=== PATIENT | female | born 1985 | race Caucasian/White ===

== ENCOUNTER 2023-10-07 15:14 | Inpatient (IN) ==
[2023-10-08] MEDS ORDERED: LIDOCAINE 1% LOCAL 20 ML VIAL INFIL PRN (16:30)
[2023-10-08] MEDS ORDERED: miSOPROStoL 50 MCG TAB PO ONE (16:30)
[2023-10-08] MEDS ORDERED: OXYTOCIN 30 UNITS/NSS 30 UNITS/500 ML BAG IV PRN (16:30)
[2023-10-08 17:07] LABS: Hematocrit (blood only) 28.9 % (37.0-47.0); Hemoglobin 9.1 g/dl (12.0-16.0); Mean Corpuscular Hemoglobin 25.1 pg (25.0-34.0); Mean Corpuscular Hgb Conc 31.5 g/dL (32.0-36.0); Mean Corpuscular Volume 79.8 fL (80.0-100.0); Mean Platelet Volume 10.9 fL (9.4-12.4); Nucleated RBC # (auto) 0.03 K/uL (0.00-0.12); Nucleated RBC % (auto) 0.4 %; Platelet Count 136 K/uL (130-400); RDW Coefficient of Variation 14.4 % (11.5-14.5); RDW Standard Deviation 42.4 fL (36.4-46.3); Red Blood Count 3.62 M/uL (4.20-5.40); White Blood Count 8.52 K/ul (4.8-10.8)
[2023-10-09] MEDS ORDERED: BUPIVACAINE 0.25% PF 30 ML VIAL ONE (01:40)
[2023-10-09] MEDS ORDERED: fentaNYL citrate PF 100 MCG/2 ML VIAL ONE (01:40)
[2023-10-09] MEDS ORDERED: fentANYL 2 MCG/ML BUPIVacaine 0.125%-NSS 100ML BAG ONE (01:40)
[2023-10-09] MEDS ORDERED: SODIUM CHLORIDE 0.9% PF INJ 10 ML VIAL ONE (01:40)
[2023-10-09] MEDS ORDERED: ePHEDrine sulfate 50 MG/ML AMP ONE (01:40)
[2023-10-09] MEDS ORDERED: LIDOCAINE 2%/EPINEPHRINE 1:200,000 20 ML PF ONE (01:40)
[2023-10-09] MEDS: LACTATED RINGER'S 1,000 ML IV PRN ×2 (02:15→06:20)
--- NOTE | 2023-10-09 02:50 | Anesthesiology Consultation ---
Date of Service October 09, 2023 Assessment & Plan (1) Encounter for pre-operative examination: Chart Review Chart Review: Acceptable Risk for Labor Epidural History Height/Weight Height: 5 ft 6 in Weight: 92.533 kg Allergies Allergy/AdvReac Type Severity Reaction Status Date / Time No Known Drug Allergies Allergy Unknown Verified 10/08/23 16:18 Medications Home Medications Medication Instructions Recorded Confirmed Last Taken [id number] 1 mg 1 tab PO DAILY 10/08/23 10/08/23 10/08/23 tablet Past Medical History Medical History (Updated 10/09/23 @ 02:50 by George Flores MD) Anemia History of miscarriage 2019 Past Surgical History Surgical History H/O dilation and curettage Miscarriage 2019 Social History Smoking Status: Never smoker Hx Alcohol Use: No alcohol intake frequency: holidays/special occasions only Hx Substance Use: No substance use type: does not use Physical Exam Vital Signs Last Vital Signs Temp 36.9 C 10/08/23 23:51 Pulse 76 10/09/23 02:46 Resp 18 10/08/23 23:51 BP 118/66 10/08/23 23:28 Pulse Ox 98 10/09/23 02:46 Testing Laboratory Results 10/08/23 16:40
[2023-10-09] MEDS ORDERED: NALOXONE HCL 1 MG in SODIUM CHLORIDE 0.9% 1,000 ML IV PRN (03:14)
[2023-10-09] MEDS ORDERED: SODIUM CHLORIDE 0.9% PF INJ 10 ML VIAL EPI STA (03:14)
[2023-10-09] MEDS ORDERED: fentaNYL citrate PF 100 MCG/2 ML VIAL EPI PRN (03:14)
[2023-10-09] MEDS ORDERED: NALOXONE HCL 0.4 MG/1 ML VIAL/CARP IV PRN (03:14)
[2023-10-09] MEDS ORDERED: ePHEDrine sulfate 50 MG/ML AMP IV PRN (03:14)
[2023-10-09] MEDS ORDERED: fentaNYL citrate PF 100 MCG/2 ML VIAL EPI STA (03:14)
[2023-10-09] MEDS ORDERED: SODIUM CHLORIDE 0.9% PF INJ 10 ML VIAL EPI PRN (03:14)
[2023-10-09] MEDS ORDERED: LIDOCAINE 2% MPF LOCAL 5 ML VIAL EPI PRN (03:14)
[2023-10-09] MEDS ORDERED: ROPIVACAINE 0.5% PF 5 MG/ML 20 ML VIAL EPI PRN (03:14)
[2023-10-09] MEDS ORDERED: fentANYL 2 MCG/ML BUPIVacaine 0.125%-NSS 100ML BAG EPI PRN (03:14)
[2023-10-09] MEDS ORDERED: BUPIVACAINE 0.25% PF 30 ML VIAL EPI STA (03:14)
[2023-10-09] MEDS ORDERED: ONDANSETRON INJ 2 MG/ML 2 ML VIAL IV PRN (03:14)
[2023-10-09] MEDS ORDERED: BUPIVACAINE 0.25% PF 30 ML VIAL EPI PRN (03:14)
[2023-10-09] MEDS ORDERED: LIDOCAINE 2%/EPINEPHRINE 1:200,000 20 ML PF EPI STA (03:14)
[2023-10-09] MEDS ORDERED: OXYTOCIN 30 UNITS/NSS 30 UNITS/500 ML BAG IV PRN ×2 (03:43→14:57)
[2023-10-09] MEDS ORDERED: METHYLERGONOVINE MALEATE 0.2 MG/ML AMP ONE (14:40)
[2023-10-09] MEDS ORDERED: miSOPROStoL 200 MCG TAB ONE (14:41)
[2023-10-09] MEDS ORDERED: HYDROCORTISONE ACETATE 25 MG SUPP PR PRN (14:57)
[2023-10-09] MEDS ORDERED: METHYLERGONOVINE MALEATE 0.2 MG/ML AMP IM ONE (14:57)
[2023-10-09] MEDS ORDERED: ACETAMINOPHEN W/CODEINE #3 1 TAB PO PRN (14:57)
[2023-10-09] MEDS ORDERED: ACETAMINOPHEN 325 MG TAB PO PRN (14:57)
[2023-10-09] MEDS ORDERED: BENZOCAINE 20% SPRY 85 APPLN/85 GM CAN EXT PRN (14:57)
[2023-10-09] MEDS ORDERED: bisacodyL 10 MG SUPP PR PRN (14:57)
[2023-10-09] MEDS ORDERED: miSOPROStoL 200 MCG TAB PR ONE (14:57)
[2023-10-09] MEDS ORDERED: oxyCODONE/ACETAMINOPHEN 5mg/325mg TAB PO PRN (14:57)
[2023-10-09] MEDS ORDERED: DIPHTHERIA/TETANUS/PERTUSSIS Vaccine (Tdap, Age 7+yrs) 0.5mL SYR/VL IM ONE (14:57)
--- NOTE | 2023-10-09 15:02 | Delivery Summary ---
Vaginal Delivery Summary Date of Service October 09, 2023 Vaginal Delivery Summary Patient has been followed in my office for care and delivery. She is well dated with a first trimester ultrasound. She has a history of macrosomia. Her last infant weight over 11 pounds and had difficulty with . Due to the history of macrosomia she was brought in for induction at 39 weeks and 1 day gestation. Induction was started with p.o. Cytotec. Then she went to IV Pitocin. At about 6 cm membranes were ruptured surgically. Fluid was clear. She continued to receive Pitocin eventually she received epidural for pain control. She went to full dilatation. Pushed out a live male with about 3 pushes." was delivered direct occiput anterior position over an intact perineum. There was a small periurethral laceration on the right side. This laceration was bleeding. Laceration was repaired with a running 3-0 chromic on a small needle. Following this inspection revealed no other lacerations. Uterus contracted nicely with a combination of Methergine IV Pitocin and Cytotec. Estimated blood loss was 200 mL.
--- NOTE | 2023-10-09 16:26 | Anesthesia Procedure Note ---
Date of Service October 09, 2023 Anesthesia Post Epidural Note Vital Signs Vital Signs: Temp Pulse Resp BP Pulse Ox 36.7 C 72 18 157/66 H 99 10/09/23 14:55 10/09/23 16:11 10/09/23 15:55 10/09/23 16:11 10/09/23 14:52 Pain Intensity Bilateral Abdomen: Pain Intensity: 0 Notes Mental Status: alert / awake / arousable and participated in evaluation Nausea / Vomiting: adequately controlled Pain: adequately controlled Airway Patency, RR, SpO2: stable & adequate BP & HR: stable & adequate Hydration State: stable & adequate Neuraxial Anesthesia: was administered and sensory block is resolving Anesthetic Complications: no major complications apparent Epidural: Removed without complications and With tip intact
[2023-10-09] MEDS: DOCUSATE SODIUM 100 MG CAP PO SCH (21:28)
[2023-10-09] MEDS: IBUPROFEN 600 MG TAB PO PRN (21:28)
[2023-10-10 07:37] LABS: Hematocrit (blood only) 29.7 % (37.0-47.0); Hemoglobin 9.4 g/dl (12.0-16.0); Mean Corpuscular Hgb Conc 31.6 g/dL (32.0-36.0); Mean Platelet Volume 11.1 fL (9.4-12.4); Platelet Count 119 K/uL (130-400); RDW Coefficient of Variation 14.5 % (11.5-14.5); RDW Standard Deviation 41.1 fL (36.4-46.3); Red Blood Count 3.76 M/uL (4.20-5.40); White Blood Count 12.16 K/ul (4.8-10.8)
[2023-10-10] MEDS ORDERED: PRENATAL VITAMIN 1 TAB PO SCH (08:00)
--- NOTE | 2023-10-10 08:45 | Obstetrical Progress Note ---
Date of Service October 10, 2023 Assessment & Plan Admission and Anticipated Discharge Date Admission Date: October 08, 2023 Subjective abdomen soft and non tender no calf tenderness ambulating well vaginal bleeding scant hgb 9.4 Results & Data Vital Signs (Past 12 Hours) Vital Signs Temp Pulse Resp BP Pulse Ox O2 Del Method 10/10/23 03:06 36.6 C 62 18 122/75 97 Room Air 10/09/23 23:14 37.1 C 81 18 114/63 97 Room Air
[2023-10-10] MEDS: IBUPROFEN 600 MG TAB PO PRN (09:20)
[2023-10-10] MEDS: DOCUSATE SODIUM 100 MG CAP PO SCH (09:21)
[2023-10-10] MEDS ORDERED: bisacodyL 5 MG TABEC PO SCH (20:00)
== END 2023-10-10 16:15 | disposition home health service (06) | DRG 807 ==
LOC: 4S1 10-08 16:03 → 4E2 10-09 19:01